=== PATIENT | male | born 1935 | race Caucasian/White ===

== ENCOUNTER 2016-12-14 22:48 | Emergency (ER) | payer OTHER, MEDICARE ==
[~2016-12-14] VITALS: Ht 182.9 cm; Wt 67.8 kg
[~2016-12-14 22:48] MED LIST: BP; CHOLESTEROL MED; CLONAZEPAM; COGENTIN; HYDR-4246 PO; IBUP-1724 PO
[2016-12-14 22:50] VITALS: Ht 182.9 cm; Wt 67.8 kg
[2016-12-14] MEDS ORDERED: THIO10CA2 (23:10)
[2016-12-14] MEDS ORDERED: TRIH2TAB3 PO (23:10)
[2016-12-14] MEDS ORDERED: CLON0.5T23 PO (23:10)
[2016-12-14] MEDS ORDERED: SIMV40TA5 PO (23:11)
--- NOTE | 2016-12-14 23:17 | NUR ---
PROVIDER STERLING ACEVEDO IN ROOM W/ PT.
--- NOTE | 2016-12-14 23:18 | ERPDOC ---
Departure Disposition Decision Date: Dec 15, 2016 Disposition Decision Time: 00:41 (LUIS M PATTEN APRN) Disposition: 01 DISCHARGED HOME, SELF-CARE Impression Impression (LUIS M PATTEN APRN) Impression: Primary Impression: Influenza B Severity: Moderate (LUIS M PATTEN APRN) Condition: Improved Seen By: Mid-level only (LUIS M PATTEN APRN) Referrals: DALTON SKELTON MD (Family) Patient Instructions: Influenza (ED) Problems/Meds/Labs Reviewed?: Yes Medications reviewed and manag: Yes (LUIS M PATTEN APRN) Additional Instructions: You have influenza B Rest Stay hydrated Take OTC tylenol for pain and fever. Follow treatment plan. Follow with your PCP if symptoms are not improving in the next week. Follow up care ordered?: Yes Mental Status: Alert (LUIS M PATTEN APRN) HPI - Cough/URI General Chief Complaint: Cough,Fever,Flu,URI Stated Complaint: FEVER/SORE THROAT Time Seen by Provider: 23:17 Source: patient, family (LUIS M PATTEN APRN) Time Seen by Provider: 23:17 (ANNIE PIMENTEL MD) HPI - Cough/URI Initial Comments 81 YO M brought to ED by family for evaluation of fever, cough, sore throat and rhinorrhea for past 4 days. Patient says that he has had trouble sleeping because he has been coughing so much. Grandson has influenza. Son who accompanies patient says that patient has reported that he feels like his heart has "fluttered" lately. Patient has hx. of COPD but is not on any inhalers. SpO2 on RA 92-94%. Patient denies any pain. Pain/Severity Scale: Now: 4/10 (sore throat) Associated Symptoms: cough, fever/chills, nasal drainage, shortness of breath, sore throat, DENIES: chest pain/soreness, dizziness, earache, facial pain, lightheadedness, muscle aches, sinus infection, wheezing (LUIS M PATTEN APRN) Allergies: Coded Allergies: Aspirin (Unverified Allergy, Unknown, 03/29/08) Past History Past Medical History Metabolic: hypercholesterolemia, hypertension Cardiac: DENIES: A-fib, CHF Respiratory: COPD GI: DENIES: ulcers Male: DENIES: renal insufficiency Neurological: DENIES: seizures Musculoskeletal: back pain, osteoarthritis Integumentary: DENIES: eczema Psychological: DENIES: depression (LUIS M PATTEN MATERIALS HANDLING COORDINATOR) Surgical History General: back (LUIS M PATTEN MATERIALS HANDLING COORDINATOR) Family History Family PMH: FOUND: other (noncontributory) (LUIS M PATTEN MATERIALS HANDLING COORDINATOR) Vaccines Hx Influenza Vaccination: Yes (07/09) (LUIS M PATTEN APRN) Social History Current Occupational Status: retired (LUIS M PATTEN APRN) Review of Systems Constitutional Constitutional: DENIES: chills, dizziness, fever, weakness (CARMEN PATTENS Sherri MATERIALS HANDLING COORDINATOR) Eyes General: DENIES: erythema, exudate Lids/Accessories: DENIES: erythema, swelling (LUIS M PATTEN MATERIALS HANDLING COORDINATOR) ENMT Ears: DENIES: pain Hearing: hearing loss Sinuses: congestion, rhinorrhea Mouth/Throat: sore throat (CARMEN PATTENS A MATERIALS HANDLING COORDINATOR) Cardiovascular Cardiac: DENIES: chest pain, murmur Rhythm/Rate: palpitations (LUIS M PATTEN A MATERIALS HANDLING COORDINATOR) Pulmonary Respiratory: cough, DENIES: dyspnea (CARMEN PATTENS A MATERIALS HANDLING COORDINATOR) GI Upper Abdomen: DENIES: nausea, pain, vomiting Lower Abdomen: DENIES: diarrhea, pain (CARMEN PATTENS A MATERIALS HANDLING COORDINATOR) General: DENIES: dysuria, pain (CARMEN PATTENS A MATERIALS HANDLING COORDINATOR) Musculoskeletal General: DENIES: joint pain, pain, tenderness (CARMEN PATTENS A MATERIALS HANDLING COORDINATOR) Integumentary Skin: DENIES: color change, itching, rash (CARMEN PATTENS A MATERIALS HANDLING COORDINATOR) Neurological General: DENIES: ataxia, change in strength, numbness, paralysis/paresis, weakness (CARMEN PATTENS A MATERIALS HANDLING COORDINATOR) Psychiatric Psychiatric: DENIES: anxiety, depression, nervousness (CARMEN PATTENS A MATERIALS HANDLING COORDINATOR) Physical Exam General General Nourishment: well nourished, well developed, no acute distress, adult (CARMEN PATTENS A MATERIALS HANDLING COORDINATOR) Vitals and Pain Weight: Kilograms: Height (feet): 6 Height (inches): 0.00 Triage Pain Scale: (CARMEN PATTENS A MATERIALS HANDLING COORDINATOR) Eyes (brief) Eyes Brief: found: EOMI, PERRL (LUIS M PATTEN MATERIALS HANDLING COORDINATOR) ENMT (brief) ENMT Brief: FOUND: TM clear, TM good light reflex, mucosa moist, pharnyx erythema, NOT FOUND: nasal exudate, nasal swelling (LUIS M PATTEN MATERIALS HANDLING COORDINATOR) Neck (brief) Neck: FOUND: trachea midline, NOT FOUND: adenopathy, tenderness, thyromegaly ( LUIS M PATTEN MATERIALS HANDLING COORDINATOR) Respiratory Inspection: NOT FOUND: tachypnea Auscultation: FOUND: decreased (throughout but clear) (LUIS M PATTEN MATERIALS HANDLING COORDINATOR) Cardiovascular (brief) Cardiac: FOUND: regular rate, regular rhythm (LUIS M PATTEN MATERIALS HANDLING COORDINATOR) Abdomen (brief) Abdominal Brief: FOUND: bowel normo active x4, soft, NOT FOUND: tender (LUIS M PATTEN MATERIALS HANDLING COORDINATOR) Musculoskeletal (brief) Musculoskeletal Brief: NOT FOUND: deformity, loss of motion (LUIS M PATTEN MATERIALS HANDLING COORDINATOR) Integumentary (brief) Integumentary Brief: FOUND: dry, pink, warm (LUIS M PATTEN MATERIALS HANDLING COORDINATOR) Neurologic (brief) Neurological Brief: FOUND: CN w/o gross def to obs, motor-no gross deficits, sensory-no gross deficits (LUIS M PATTEN MATERIALS HANDLING COORDINATOR) Psychiatric (brief) Psychiatric Brief: FOUND: alert, normal affect, oriented (LUIS M PATTEN MATERIALS HANDLING COORDINATOR ) Differential Diagnoses Differential Diagnoses Considering: Acute Bronchitis, COPD Exacerbation, Influenza, Pharyngitis, Pneumonia, Sinusitis, Strep, URI, Viral Syndrome (LUIS M PATTEN MATERIALS HANDLING COORDINATOR) Progress Results/Orders Orders Procedure Category Date Status Time Strep A Antigen Screen LAB 12/14/16 Complete 23:17 Influenza A/B Screen LAB 12/14/16 Complete 23:17 Albuterol/Ipratropium PHA 12/14/16 Complete (Duoneb) 23:30 Cbc W/Auto LAB 12/14/16 Complete Diff-Reflex Manual 23:25 Chest, Pa & Lateral RAD 12/14/16 Resulted 23:25 Troponin I W LAB 12/14/16 Complete Hemolysis Index 23:25 Probnp LAB 12/14/16 Complete EKG EKG 12/14/16 Taken Group A Strep Culture GAY 12/14/16 Complete 23:34 Cmp - Comprehensive LAB 12/14/16 Complete Metabolic Acetaminophen PHA 12/15/16 Complete (Tylenol Regular 00:00 (ANNIE PIMENTEL MD) Lab Results Laboratory Tests Test 12/14/16 23:22 12/14/16 23:36 Influenza Type A Antigen Negative Influenza Type B Antigen Positive Group A Streptococcus Screen Negative White Blood Count 7.2T/MM3 Red Blood Count 3.84M/MM3 Hemoglobin 11.9GM/DL Hematocrit 35.9% Mean Corpuscular Volume 93.5UM3 Mean Corpuscular Hemoglobin 31.0UUG Mean Corpuscular Hemoglobin Concent 33.1GM/DL RDW Standard Deviation 41.3FL Platelet Count 237T/MM3 Mean Platelet Volume 9.7UM3 Immature Granulocyte % (Auto) 0.1% Neutrophils (%) (Auto) 73.2% Lymphocytes (%) (Auto) 14.8% Monocytes (%) (Auto) 10.9% Eosinophils (%) (Auto) 0.6% Basophils (%) (Auto) 0.4% Absolute Immature Granulocyte (auto 0.01T/MM3 Absolute Neutrophils (auto) 5.2T/MM3 Absolute Lymphocytes (auto) 1.1T/MM3 Absolute Monocytes (auto) 0.8T/MM3 Absolute Eosinophils (auto) 0.0T/MM3 Absolute Basophils (auto) 0.0T/MM3 Turbidity 148 Sodium Level 141MEQ/L Potassium Level 4.0MEQ/L Chloride Level 105MEQ/L Carbon Dioxide Level 27MEQ/L Anion Gap 9MEQ/L Blood Urea Nitrogen 17.0MG/DL Creatinine 0.9MG/DL Glomerular Filtration Rate Calc 81 BUN/Creatinine Ratio 19RATIO Glucose Level 125MG/DL Calculated Osmolality 274MOSM/KG Calcium Level 8.9MG/DL Total Bilirubin 0.50MG/DL Icterus Index < 2 Aspartate Amino Transf (AST/SGOT) 32U/L Alanine Aminotransferase (ALT/SGPT) 30U/L Alkaline Phosphatase 48U/L Troponin I 0.013ng/ml EH-Fzb-B-Type Natriuretic Peptide 243PG/ML Total Protein 6.3G/DL Albumin 3.4G/DL Globulin 2.9G/DL Albumin/Globulin Ratio 1.2RATIO Chemistry Specimen Hemolysis < 15 (ANNIE PIMENTEL MD) Medications Current ED Medications Albuterol/ Ipratropium (Duoneb) 3 ml O ONCE AEROSOL Last administered on t 23:32; Start 12/14/16 at 23:30; Stop 12/14/16 at 23:31; Status DC Acetaminophen (Tylenol Regular Strength) 650 mg O ONCE PO Last administered on 12/15/16t 00:00; Start 12/15/16 at 00:00; Stop 12/15/16 at 00:01; Status DC (ANNIE PIMENTEL MD) Progress Progress WBC 7.2 with viral shift CMP unremarkable Influenza B positive CXR no acute cardiopulmonary findings Patient has continue to have SpO2 above 93%. Patient reports relieve of throat pain with 650mg of tylenol. I discussed labs/CXR with patient/family and answered questions. Patient and family verbalized understanding of treatment plan, close follow up with PCP and return precautions. (LUIS M PATTEN APRN) EKG EKG : Rate: 60-100 Rhythm: sinus Barco: normal QRS: normal Intervals: normal ST/T: normal Interpreted by: signing physician (Dr. Pimentel) (LUIS M PATTEN APRN) Xray Xray : Xray: CXR PA/Lat (no acute cardiopulmonary disease) Interpretation: Interpreted by Me (LUIS M PATTEN APRN) LUIS M PATTEN APRN Dec 14, 2016 23:18 ANNIE PIMENTEL MD Dec 20, 2016 18:30
--- NOTE | 2016-12-14 23:22 | NUR ---
INFLUENZA AND STREP A SWABS COLLECTED.
[2016-12-14] MEDS ORDERED: ALBUTEROL/IPRATROPIUM INHAL. 2.5mg-0.5mg/3ml Neb. AEROSOL ONE (23:30)
--- OUTSIDE RECORDS SUMMARY | 2016-12-14 23:33 | XMS REPORT | Continuity of Care Document ---
Author Author [facility] Organization [facility] Address Unknown Phone Unavailable Allergies Active Description Code Type Severity Reaction Onset Reported/Identified Relationship to Patient Clinical Status Yes aspirin NKMA N/A N/A 01/24/2014 Yes caffeine NKMA N/A N/A 01/24/2014 Yes aspirin aspirin Drug Allergy Mild BREATHING PROBLEMS 07/03/2015 Medications Problems Procedures Results Test Result Range HEMOGLOBIN - 07/10/15 08:18 MEAN CELL VOLUME 89.8 fl 80.0-100.0 HEMOGLOBIN 12.7 gm/dL 14.0-18.0 METABOLIC PANEL, BASIC - 07/10/15 08:18 POTASSIUM 4.2 mmol/L 3.5-5.3 EST GFR (MDRD) > 60 mL/min > 59 ANION GAP 8 mmol/L 5-15 EST CrCl (CG) > 60 mL/min > 59 GLUCOSE 114 mg/dL 70-99 CALCIUM 8.7 mg/dL 8.5-10.1 BLOOD UREA NITROGEN 9 mg/dL 7-20 CREATININE 0.8 mg/dL 0.7-1.3 SODIUM 135 mmol/L 135-148 CHLORIDE 101 mmol/L 98-110 CARBON DIOXIDE 26 mmol/L 21-32 Encounters ACCT No. Visit Date/Time Discharge Status Pt. Type Provider Facility Loc./Unit Complaint [id number] 10/19/2016 10:10:00 2016 23:59:00 DIS Outpatient Benson Villa [facility] [place] TCPA, Skin tag on back of right leg [id number] 06/17/2015 12:26:00 2014 23:59:00 DIS Outpatient Azeem Gaston [facility] [place] bad cold DOC [id number] 12/12/2014 10:08:00 2014 23:59:00 DIS Outpatient Benson Villa [facility] [place] handicap paperwork
--- OUTSIDE RECORDS SUMMARY | 2016-12-14 23:33 | XMS REPORT | Referral Summary ---
Author Author [facility] Organization [facility] Address Unknown Phone Unavailable Care Team Providers Care Machine Long Goods Helper Name Role Phone Christiano Villa Primary Care Physician [phone] Encounter VC Date(s): 06/17/15 - 06/17/15 [facility], [address] [place] [id number] Discharge Diagnosis: Viral upper respiratory tract infection Discharge Disposition: 01-Home or Self Care Attending Physician: Azeem Gaston DO Admitting Physician: Azeem Gaston DO Vital Signs Most recent to 1 oldest [Reference Range]: Temperature Tympanic 36.6 degC [36.6-38.1 degC] (06/17/15 12:41 PM) Peripheral Pulse 76 bpm Rate [60-100 bpm] (06/17/15 12:41 PM) Blood Pressure 105/45 mmHg [90-140/60-90 mmHg] (06/17/15 12:41 PM) SpO2 96 % (06/17/15 12:41 PM) Problem List Condition Effective Dates Status Health Status Informant Alcoholism(Confirmed Active ) Alzheimer's Active dementia(Confirmed) Anxiety(Confirmed) Active ASVD Active (arteriosclerotic vascular disease) of carotid systems(Confirmed) BPH (benign Active prostatic hypertrophy)(Confirm ed) COPD (chronic Active obstructive pulmonary disease)(Confirmed) Depression(Confirmed Active ) Dyslipidemia(Confirm Active ed) Essential Active tremors(Confirmed) Hyperlipidemia(Confi Active rmed) Hypertension(Confirm Active ed) Neuropathy(Confirmed Active ) Osteoarthritis(Confi Active rmed) Tobacco Active patient user(Confirmed) Allergies, Adverse Reactions, Alerts Substance Reaction Severity Status aspirin Active caffeine Active Medications Aricept 10 mg oral tablet 1 tabs, Oral, Bedtime (once a day), VA, # 30 tabs, 3 Refill(s), Pharmacy: [facility] #[id number], 1 tabs Oral Bedtime (once a day),Instr:VA Start Date: 01/14/15 Status: Ordered benztropine 2 mg oral tablet tabs, Oral, BID, 0 Refill(s) Start Date: 12/11/14 Status: Ordered bethanechol 25 mg oral tablet tabs, Oral, TID, 0 Refill(s) Start Date: 12/11/14 Status: Ordered clobetasol 0.05% topical cream ashu, Topical, BID, 0 Refill(s) Start Date: 12/11/14 Status: Ordered clonazePAM 1 mg oral tablet 1 tabs, Oral, TID, 0 Refill(s) Start Date: 12/11/14 Status: Ordered lisinopril 10 mg oral tablet tabs, Oral, Daily, 0 Refill(s) Start Date: 12/11/14 Status: Ordered lisinopril 20 mg oral tablet tabs, Oral, Daily, 0 Refill(s) Start Date: 12/11/14 Status: Ordered meloxicam 15 mg oral tablet tabs, Oral, Daily, 0 Refill(s) Start Date: 12/11/14 Status: Ordered omeprazole 20 mg oral delayed release capsule caps, Oral, Daily, 0 Refill(s) Start Date: 12/11/14 Status: Ordered simvastatin 40 mg oral tablet tabs, Oral, Bedtime (once a day), 0 Refill(s) Start Date: 12/11/14 Status: Ordered thiothixene 10 mg oral capsule caps, Oral, BID, 0 Refill(s) Start Date: 12/11/14 Status: Ordered Results No data available for this section Immunizations No data available for this section Procedures No data available for this section Social History Social History Type Response Smoking Status Light tobacco smoker1 1Smoking only occasionally instead of daily Assessment and Plan Extracted from: Title: Office Visit Note Author: Azeem Gaston DO Date: 06/17/15 Assessment/Plan Viral upper respiratory tract infection 1. At most he has a viral upper respiratory tract infection. 2. Continue with supportive care. 3. Follow-up if worsening presentation, or no improvement in the next couple of days. Ordered: Office Visit Level 3 Est [id number]
--- OUTSIDE RECORDS SUMMARY | 2016-12-14 23:33 | XMS REPORT | Referral Summary ---
Author Author [facility] Organization [facility] Address Unknown Phone Unavailable Care Team Providers Care Slumber Room Attendant Name Role Phone Christiano Villa Primary Care Physician [phone] Encounter VC Date(s): 10/19/16 - 10/19/16 [facility], [address] [place] [id number]- Discharge Disposition: 01-Home or Self Care Attending Physician: Benson Villa MD Admitting Physician: Benson Villa MD Vital Signs Most recent to 1 oldest [Reference Range]: Peripheral Pulse 72 bpm Rate [60-100 bpm] (10/19/16 10:30 AM) Blood Pressure 102/70 mmHg [90-140/60-90 mmHg] (10/19/16 10:30 AM) SpO2 94 % (10/19/16 10:30 AM) Problem List Condition Effective Dates Status Health [...] VA, # 30 tabs, 3 Refill(s), Pharmacy: [facility] #[id number], 1 tabs Oral Bedtime (once a day),Instr:VA Start Date: 01/14/15 Status: Ordered benztropine 2 mg oral tablet tabs, Oral, BID, 0 Refill(s) Start Date: 12/11/14 Status: Ordered cefadroxil 500 mg oral capsule 500 mg 1 caps, Oral, q12hr, X 10 days, # 20 caps, 0 Refill(s), Pharmacy: [facility] #[id number], 1 caps Oral q12hr,x10 days Start Date: 10/19/16 Stop Date: 10/29/16 Status: Ordered clonazePAM 1 mg oral tablet 0.5 mg 0.5 tabs, Oral, BID, 0 Refill(s) Start Date: 12/11/14 Status: Ordered meloxicam 15 mg oral tablet tabs, Oral, Daily, 0 Refill(s) Start Date: 12/11/14 Status: Ordered simvastatin 40 mg oral tablet 20 mg 0.5 tabs, Oral, Bedtime (once a day), 0 Refill(s) Start Date: 12/11/14 Status: Ordered thiothixene 10 mg oral capsule caps, Oral, BID, 0 Refill(s) Start Date: 12/11/14 Status: Ordered Results No data available for this section Immunizations No data available for this section Procedures No data available for this section Social History Social History Type Response Smoking Status Former smoker Assessment and Plan No data available for this section
--- NOTE | 2016-12-14 23:36 | NUR ---
LAB LAB IN ROOM FOR BASIC LABS W/O IV.
[2016-12-14 23:44] LABS: BASOPHILS % (AUTO) 0.4 % (0-2); EOSINOPHILS % (AUTO) 0.6 % (0-4); HCT - HEMATOCRIT 35.9 % (41-53); HGB - HEMOGLOBIN 11.9 GM/DL (13.5-17.5); IMMATURE GRANULOCYTE # (AUTO) 0.01 T/MM3 (0.00-0.03); IMMATURE GRANULOCYTE % (AUTO) 0.1 % (0.0-0.5); LYMPHOCYTES # (AUTO) 1.1 T/MM3 (1-4.8); LYMPHOCYTES % (AUTO) 14.8 % (23-45); MEAN CORPUSCULAR HGB CONC(MCHC 33.1 GM/DL (31-37); MEAN CORPUSCULAR VOLUME 93.5 UM3 (80-100); MEAN PLATELET VOLUME 9.7 UM3 (9.4-12.4); MONOCYTES # (AUTO) 0.8 T/MM3 (0-0.8); MONOCYTES % (AUTO) 10.9 % (0-9.0); NEUTROPHILS #(AUTO)-ABSOLUTE 5.2 T/MM3 (1.8-7.7); NEUTROPHILS % (AUTO) 73.2 % (33-66); RED BLOOD COUNT 3.84 M/MM3 (4.50-5.90); WBC - WHITE BLOOD COUNT 7.2 T/MM3 (4.5-11.0)
[2016-12-14 23:50] LABS: INFLUENZA A AG SCREEN NEGATIVE (NEGATIVE); INFLUENZA B AG SCREEN POSITIVE (NEGATIVE)
[2016-12-15] MEDS ORDERED: ACETAMINOPHEN 325 MG TABLET PO ONE
--- NOTE | 2016-12-15 | NUR ---
PO MED 650 MG TYLENOL GIVEN CHARTED W/ PT TOLERANCE.
--- NOTE | 2016-12-15 00:05 | NUR ---
XRAY PT GONE TO XRAY VIA CART.
[2016-12-15 00:17] LABS: ALBUMIN 3.4 G/DL (3.5-5.0); ALBUMIN/GLOBULIN RATIO 1.2 RATIO (1.1-2.2); ALKALINE PHOSPHATASE 48 U/L (38-126); ALT (SGPT) 30 U/L (21-72); ANION GAP 9 MEQ/L (5-15); AST (SGOT) 32 U/L (17-59); BUN/CREATININE RATIO 19 RATIO (6-26); CALCIUM 8.9 MG/DL (8.4-10.2); CHLORIDE 105 MEQ/L (98-107); CO2 - CARBON DIOXIDE 27 MEQ/L (22-30); CREATININE 0.9 MG/DL (0.8-1.5); GLOMERULAR FILTRATION RATE 81; GLUCOSE 125 MG/DL (75-110); SODIUM 141 MEQ/L (134-144); TOTAL PROTEIN 6.3 G/DL (6.3-8.2)
--- NOTE | 2016-12-15 00:20 | NUR ---
XRAY PT BACK FROM XRAY VIA CART.
[2016-12-15 00:50] VITALS: BP 110/76; PULSE 84; RESP 24; TEMP 98.9; O2SAT 96
--- NOTE | 2016-12-15 00:50 | NUR ---
DISCHARGE PT GIVEN INSTRUCTIONS FOR SLEF CARE OF GISEL Epstein, PT VERBALIZED UNDERSTANDING AND SIGNED FORM, PT LEFT ER AMBULATORY W/ CANE , ALERT, VS CHARTED AND NO ACUTE DISTRESS.
--- NOTE | 2016-12-15 07:55 | DI ---
INDICATION: ITS.REASON: cough, fever PROCEDURE: CHEST 2-VIEWS UPRIGHT (PA \T\ LAT) Encounter: Initial COMPARISON: July 17, 2014 FINDINGS: Emphysema again noted. Chronic area of scarring in the right upper lobe. No pneumonia. There is no pleural effusion or pneumothorax. The heart size, mediastinal contours and pulmonary vascularity are within normal limits. IMPRESSION: No acute cardiopulmonary disease. .
== END 2016-12-15 00:50 | disposition home or self-care (01) ==
LOC: ED 22:48
DX: J10.1 Influenza due to other identified influenza virus with other respiratory manifestations (principal); J44.9 Chronic obstructive pulmonary disease, unspecified
CPT/HCPCS: 36415; 80053; 83880; 84484; 85025; 87081; 87400; 87430; 93005; 94640

== ENCOUNTER 2017-01-07 06:10 | Emergency (ER) | payer MEDICARE, OTHER ==
[~2017-01-07] VITALS: Ht 182.9 cm; Wt 64.5 kg
[~2017-01-07 06:10] MED LIST changes: -BP; -CHOLESTEROL MED; +CLON0.5T23 PO; -CLONAZEPAM; -COGENTIN; -HYDR-4246 PO; +SIMV40TA5 PO; +THIO10CA2; +TRIH2TAB3 PO
[2017-01-07 06:12] VITALS: Ht 182.9 cm; Wt 64.5 kg
--- OUTSIDE RECORDS SUMMARY | 2017-01-07 06:14 | XMS REPORT | Continuity of Care Document ---
Author Author [facility] Organization [facility] Address Unknown Phone Unavailable Allergies Active Description [...] Status Pt. Type Provider Facility Loc./Unit Complaint [id number] 10/19/2016 10:10:00 2016 23:59:00 DIS Outpatient Benson Villa [facility] [place] TCPA, Skin tag on back of right leg [id number] 06/17/2015 12:26:00 2014 23:59:00 DIS Outpatient Azeem Gaston [facility] [place] bad cold DOC [id number] 12/12/2014 10:08:00 2014 23:59:00 DIS Outpatient Benson Villa [facility] [place] handicap paperwork
--- OUTSIDE RECORDS SUMMARY | 2017-01-07 06:14 | XMS REPORT | Referral Summary ---
Author Organization Unknown Address Unknown Phone Unavailable Care Team Providers Care Adjunct Instructor Of Women'S Studies Name Role Phone Christiano Villa Primary Care Physician [phone] Encounter VC Date(s): 12/12/14 - 12/12/14 [facility] [place], Family [address] [place] [address] Discharge Diagnosis: Anxiety Discharge Diagnosis: Osteoarthritis Discharge Diagnosis: Neuropathy Discharge Diagnosis: COPD (chronic obstructive pulmonary disease) Discharge Diagnosis: Depression Discharge Disposition: Home or Self Care Attending Physician: Benson Villa MD Admitting Physician: Benson Villa MD Vital Signs Most recent to 1 oldest [Reference Range]: Blood Pressure 112/58 mmHg [90-140/60-90 mmHg] (12/12/14 10:29 AM) Problem List Condition Effective Dates Status Health Status Informant Alcoholism(Confirmed Active ) Anxiety(Confirmed) Active ASVD Active (arteriosclerotic vascular disease) [...] a day), [facility], # 30 tabs, 3 Refill(s) Special Instructions: [facility] Start Date: 12/12/14 Status: Ordered benztropine 2 mg oral tablet [...] occasionally instead of daily Assessment and Plan No data available for this section
--- NOTE | 2017-01-07 06:36 | NUR ---
PROVIDER DR. WILDER IN ROOM WITH PT.
[2017-01-07] MEDS ORDERED: ALBUTEROL/IPRATROPIUM INHAL. 2.5mg-0.5mg/3ml Neb. AEROSOL ONE ×2 (06:45→09:30)
[2017-01-07 07:01] VITALS: O2SAT 90
--- NOTE | 2017-01-07 07:13 | ERPDOC ---
Departure Disposition Decision Date: Jan 07, 2017 Disposition Decision Time: 08:00 Disposition: 44 TO [facility] Impression Impression Impression: Primary Impression: COPD exacerbation Severity: Moderate Condition: Improved Seen By: Physician only Referrals: DALTON SKELTON MD (Family) Problems/Meds/Labs Reviewed?: Yes Medications reviewed and manag: Yes Follow up care ordered?: Yes Mental Status: Alert, Oriented HPI - General Medical General Chief Complaint: Dyspnea/Respdistress Stated Complaint: SOA, COUGH Time Seen by Provider: 06:31 Source: patient, family Exam Limitations: no limitations HPI - General Medical Initial Comments 81-year-old male presents to the emergency department with a chief complaint of cough and shortness of breath. Patient's cough is productive of a white mucus. Patient states that he has been feeling short of breath since he was diagnosed with influenza B on 12/14/2016. Patient does note chronic shortness of breath however secondary to COPD. He does not use home O2. Patient denies any pain or discomfort. Patient notes that his symptoms felt better with a short course of steroids and antibiotic coverage which was completed 4-5 days ago. Patient denies any other complaints or associated symptoms. Patient was at home when his symptoms began. Symptoms have had a gradual progression in nature since onset. Occurred At: home Onset: Gradual Allergies: Coded Allergies: aspirin (Unverified Allergy, Unknown, 01/07/17) Past History Past Medical History Metabolic: hypercholesterolemia, hypertension Respiratory: COPD Musculoskeletal: back pain, osteoarthritis Surgical History General: back Family History Family History: Negative Family PMH: FOUND: other Vaccines Hx Influenza Vaccination: Yes (07/09) Social History Smoking Status: Former smoker Substance Use Type: does not use Alcohol Intake: none Current Occupational Status: retired Review of Systems Constitutional Constitutional: DENIES: chills, fever Eyes General: DENIES: erythema, exudate Lids/Accessories: DENIES: erythema, swelling Vision: DENIES: acuity, blurring ENMT Ears: DENIES: drainage, erythema Hearing: DENIES: hearing loss Balance: DENIES: ataxia, falling to one side Sinuses: DENIES: congestion, pain Nose: DENIES: nosebleeds, pain Mouth/Throat: DENIES: painful swallowing, sore throat Teeth: DENIES: pain Jaw: DENIES: pain Cardiovascular Cardiac: DENIES: chest pain, dyspnea on exertion Rhythm/Rate: DENIES: irregular beat, palpitations Vascular: DENIES: pedal edema, unilateral swelling Pulmonary Respiratory: cough, dyspnea, sputum, DENIES: pleuritic chest pain GI Upper Abdomen: DENIES: nausea, pain, vomiting Lower Abdomen: DENIES: diarrhea, pain General: DENIES: dysuria, frequency Musculoskeletal General: DENIES: joint pain, tenderness Integumentary Skin: DENIES: itching, rash Neurological General: DENIES: headache, numbness, weakness Psychiatric Psychiatric: DENIES: emotional instability, suicidal ideation/attempt Endocrine Endocrine: DENIES: polydipsia, polyphagia Hematologic/Lymphatic Hematologic/Lymphatic: DENIES: frequent nosebleeds, lymphadenopathy Allergic/Immunological Allergic/Immunoligical: DENIES: allergic reactions, hives Physical Exam General General Nourishment: well nourished, well developed, appears stated age, no acute distress, adult General Body Habitus: well groomed Vitals and Pain First Documented Vital Signs Date Time Temp Pulse Resp B/P Pulse Ox O2 Delivery O2 Flow Rate FiO2 01/07/17 06:12 97.8 95 40 134/64 94 Room Air Weight: Kilograms: 64.500 Height (feet): 6 Height (inches): 0 Triage Pain Scale: RN VS reviewed by Provider: Yes Normal Exams: Head: Normocephalic w/o trauma Eyes: Pupils are PERRLA w/ EOMI, No scleral icterus, irritation, or foreign bodies noted ENMT: No facial trauma, nasal exudates, pharyngeal erythema, or exudates are noted Dental: No fractured, loose, or missing teeth noted Neck: Full range of motion, without adenopathy, JVD, bruits or thyromegaly Chest/Resp: with good airflow, and symmetry bilaterally CV: Regular rate and rhythm, without murmur or gallop, Pulses 2+ all extremities, capillary refill, <2 seconds all ext., no pedal edema noted Abdomen: Bowel sounds positive, soft, non-tender, non-distended, no hepatosplenomegaly, masses or bruits noted Lymphatic: No lymphadenopathy, or lymphedema noted Musculoskeletal: No tenderness, or deformity noted, good range of motion, all extremities Integumentary: No rashes, hives, or bruising noted, hair and nails, without abnormality Neurologic: Patient is alert, and oriented, cranial nerves, motor/sensory/ cerebellar, exams w/o gross deficits, to observation Psychiatric: Patient exhibits, appropriate attention, emotion and affect Respiratory (brief) Comments Scattered End Expiratory Wheezes Bilaterally. Differential Diagnoses Considering: Other (COPD/URI/Pneumonia/acute bronchitis) Progress Results/Orders Orders Procedure Category Date Status Time Cbc W/Auto LAB 01/07/17 Complete Diff-Reflex Manual Cmp - Comprehensive LAB 01/07/17 Complete Metabolic Troponin I W LAB 01/07/17 Complete Hemolysis Index EKG EKG 01/07/17 Taken Chest, Pa & Lateral RAD 01/07/17 Resulted 06:31 Probnp LAB 01/07/17 Complete 06:31 Albuterol/Ipratropium PHA 01/07/17 Complete (Duoneb) 06:45 Iv Lock (Ed Only) EDM 01/07/17 Transmitted 06:58 Normal Saline (Ns) PHA 01/07/17 Complete 08:00 Methylprednisolone PHA 01/07/17 Complete Sod Succ (Solu-Medrol 08:15 Doxycycline PHA 01/07/17 Complete (Vibramycin) 21:00 Albuterol/Ipratropium PHA 01/07/17 Complete (Duoneb) 09:30 Doxycycline PHA 01/07/17 Complete (Vibramycin) 09:45 UA, LAB 01/07/17 In Process Dip&Micro(Complete) & 09:47 Lab Results Laboratory Tests Test 01/07/17 07:05 01/07/17 09:47 White Blood Count 9.3T/MM3 Red Blood Count 4.37M/MM3 Hemoglobin 13.1GM/DL Hematocrit 41.6% Mean Corpuscular Volume 95.2UM3 Mean Corpuscular Hemoglobin 30.0UUG Mean Corpuscular Hemoglobin Concent 31.5GM/DL RDW Standard Deviation 43.4FL Platelet Count 313T/MM3 Mean Platelet Volume 9.9UM3 Immature Granulocyte % (Auto) 0.1% Neutrophils (%) (Auto) 69.9% Lymphocytes (%) (Auto) 15.4% Monocytes (%) (Auto) 8.5% Eosinophils (%) (Auto) 5.2% Basophils (%) (Auto) 0.9% Absolute Immature Granulocyte (auto 0.01T/MM3 Absolute Neutrophils (auto) 6.5T/MM3 Absolute Lymphocytes (auto) 1.4T/MM3 Absolute Monocytes (auto) 0.8T/MM3 Absolute Eosinophils (auto) 0.5T/MM3 Absolute Basophils (auto) 0.1T/MM3 Turbidity < 20 Sodium Level 146MEQ/L Potassium Level 4.3MEQ/L Chloride Level 108MEQ/L Carbon Dioxide Level 25MEQ/L Anion Gap 13MEQ/L Blood Urea Nitrogen 23.0MG/DL Creatinine 0.8MG/DL Glomerular Filtration Rate Calc 93 BUN/Creatinine Ratio 29RATIO Glucose Level 123MG/DL Calculated Osmolality 286MOSM/KG Calcium Level 9.3MG/DL Total Bilirubin 0.80MG/DL Icterus Index < 2 Aspartate Amino Transf (AST/SGOT) 31U/L Alanine Aminotransferase (ALT/SGPT) 40U/L Alkaline Phosphatase 48U/L Troponin I < 0.012ng/ml MS-Arj-Z-Type Natriuretic Peptide 65PG/ML Total Protein 7.2G/DL Albumin 4.0G/DL Globulin 3.2G/DL Albumin/Globulin Ratio 1.3RATIO Chemistry Specimen Hemolysis 55 Urine Collection Type Cleancatch-midstream Urine Color Yellow Urine Turbidity Cloudy Urine pH 6.0 Urine Specific [place] 1.025 Urine Protein Trace Urine Glucose (UA) Negative Urine Ketones Negative Urine Blood 1+ Urine Nitrite Positive Urine Bilirubin Negative Urine Urobilinogen 0.2EU/DL Urine Leukocyte Esterase 3+ Urine RBC Pending Urine WBC Pending Urine Bacteria Pending Medications Current ED Medications Albuterol/ Ipratropium 3 ml 3 ml O ONCE AEROSOL Last administered on 07:08; Start 01/07/17 at 06:45; Stop 01/07/17 at 06:46; Status DC Sodium Chloride (NS) 500 ml @ 999 mls/hr Q31M ONCE IV Last administered on 08:21; Start 01/07/17 at 08:00; Stop 01/07/17 at 08:30; Status DC Methylprednisolone Sodium Succinate 125 mg 125 mg O ONCE IV Last administered on 01/07/17 08:21; Start 01/07/17 at 08:15; Stop 01/07/17 at 08:16; Status DC Doxycycline Hyclate/Sodium Chloride (Vibramycin/NS) 250 ml @ 250 mls/hr Q12HR IV Last administered on 01/07/17 09:26; Start 01/07/17 at 21:00; Stop at 21:00; Status DC Albuterol/ Ipratropium (Duoneb) 3 ml O ONCE AEROSOL ; Start 01/07/17 at 09:30; Stop 01/07/17 at 09:49; Status DC Doxycycline Hyclate (Vibramycin) 100 mg O ONCE PO Last administered on t 09:37; Start 01/07/17 at 09:45; Stop 01/07/17 at 09:46; Status DC Progress Progress Patient is given aerosol DuoNeb treatment upon arrival in the emergency department. This improved the patient's wheezing. Patient is given solu- medrol 125 mg IV times one. Patient is given doxycycline 100 mg by mouth 1 in the emergency Department. Patient is uncomfortable with returning home at this time. Long discussion was had with the patient and family regarding risk versus benefit of treatment. [facility] [place] [facility] [place] for [facility] as he is not comfortable returning home at this time. [facility] primary care physician is Dr. De León from the [place] and patient would like to continue treatment with his PCP at the [place] as they have been treating him as an outpatient for a COPD exacerbation. Patient has failed outpatient treatment. Patient requests transfer to the [place] for further evaluation and treatment. Patient and his son declined transfer by ambulance requesting to go by private car. Risk versus benefit of this is discussed in detail with them and they verbalized agreement and understanding. Patient is stable for transfer at this time. Patient declines 2nd DuoNeb treatment in the emergency department. Patient is accepted by Dr. Hook from the [place] after requested transfer is approved. Patient is transferred to the [place] via private car for further evaluation and treatment at his request. EKG EKG : Rate: 60-100 Rhythm: sinus [place]: normal QRS: normal Intervals: normal ST/T: normal Interpreted by: signing physician Xray Xray : Xray: CXR Portable Interpretation: Normal, Reviewed Written Report CALVIN WILDER DO Jan 07, 2017 07:13
--- OUTSIDE RECORDS SUMMARY | 2017-01-07 07:13 | XMS REPORT | Continuity of Care Document ---
Author Author [facility] Organization [facility] Address Unknown Phone Unavailable Allergies Active Description [...] Status Pt. Type Provider Facility Loc./Unit Complaint [id number] 10/19/2016 10:10:00 2016 23:59:00 DIS Outpatient Benson Villa [facility] [place] TCPA, Skin tag on back of right leg [id number] 06/17/2015 12:26:00 2014 23:59:00 DIS Outpatient Azeem Gaston [facility] [place] bad cold DOC [id number] 12/12/2014 10:08:00 2014 23:59:00 DIS Outpatient Benson Villa [facility] [place] handicap paperwork
[2017-01-07 07:15] LABS: BASOPHILS # (AUTO) 0.1 T/MM3 (0-0.2); BASOPHILS % (AUTO) 0.9 % (0-2); EOSINOPHILS # (AUTO) 0.5 T/MM3 (0-0.5); EOSINOPHILS % (AUTO) 5.2 % (0-4); HCT - HEMATOCRIT 41.6 % (41-53); HGB - HEMOGLOBIN 13.1 GM/DL (13.5-17.5); IMMATURE GRANULOCYTE # (AUTO) 0.01 T/MM3 (0.00-0.03); IMMATURE GRANULOCYTE % (AUTO) 0.1 % (0.0-0.5); LYMPHOCYTES # (AUTO) 1.4 T/MM3 (1-4.8); LYMPHOCYTES % (AUTO) 15.4 % (23-45); MEAN CORPUSCULAR HGB CONC(MCHC 31.5 GM/DL (31-37); MEAN CORPUSCULAR VOLUME 95.2 UM3 (80-100); MEAN PLATELET VOLUME 9.9 UM3 (9.4-12.4); MONOCYTES # (AUTO) 0.8 T/MM3 (0-0.8); MONOCYTES % (AUTO) 8.5 % (0-9.0); NEUTROPHILS #(AUTO)-ABSOLUTE 6.5 T/MM3 (1.8-7.7); NEUTROPHILS % (AUTO) 69.9 % (33-66); RED BLOOD COUNT 4.37 M/MM3 (4.50-5.90); WBC - WHITE BLOOD COUNT 9.3 T/MM3 (4.5-11.0)
[2017-01-07] MEDS ORDERED: ALBU0.63 AEROSOL (07:36)
[2017-01-07] MEDS ORDERED: ESCI5TAB PO (07:36)
[2017-01-07 07:37] LABS: ALBUMIN/GLOBULIN RATIO 1.3 RATIO (1.1-2.2); ALKALINE PHOSPHATASE 48 U/L (38-126); ALT (SGPT) 40 U/L (21-72); ANION GAP 13 MEQ/L (5-15); AST (SGOT) 31 U/L (17-59); BUN/CREATININE RATIO 29 RATIO (6-26); CALCIUM 9.3 MG/DL (8.4-10.2); CHLORIDE 108 MEQ/L (98-107); CO2 - CARBON DIOXIDE 25 MEQ/L (22-30); CREATININE 0.8 MG/DL (0.8-1.5); GLOMERULAR FILTRATION RATE 93; GLUCOSE 123 MG/DL (75-110); POTASSIUM 4.3 MEQ/L (3.6-5); SODIUM 146 MEQ/L (134-144); TOTAL PROTEIN 7.2 G/DL (6.3-8.2)
--- NOTE | 2017-01-07 07:37 | NUR ---
DR WILDER IN
--- NOTE | 2017-01-07 07:41 | NUR ---
TO [facility] PER CART
--- NOTE | 2017-01-07 07:59 | NUR ---
RETURNED FROM [facility]
[2017-01-07] MEDS ORDERED: NORMAL SALINE 500 ML IV ONE (08:00)
--- NOTE | 2017-01-07 08:04 | DI ---
INDICATION: ITS.REASON: cough PROCEDURE: CHEST 2-VIEWS UPRIGHT (PA \T\ LAT) Encounter: Initial COMPARISON: December 15, 2016 FINDINGS: The lungs are clear without evidence of focal abnormal airspace opacity. There is no pleural effusion or pneumothorax. Hyperinflation. The heart size, mediastinal contours and pulmonary vascularity are within normal limits. IMPRESSION: No acute cardiopulmonary disease. .
[2017-01-07] MEDS ORDERED: DOXYCYCLINE 100 MG TABLET PO ONE (09:45)
[2017-01-07 09:53] LABS: BLOOD, URINE 1+ (NEGATIVE); COLOR,URINE YELLOW (YELLOW); LEUKOCYTE ESTERASE ,URINE 3+ (NEGATIVE); NITRITE,URINE POSITIVE (NEGATIVE); UROBILINOGEN,URINE 0.2 EU/DL (NORMAL)
--- NOTE | 2017-01-07 09:55 | NUR ---
CONSENT FOR TRANSFER SIGNED. REFUSAL TO USE AMBULANCE FORM SIGNED BY PT. IV SITE FLUSHED & COBAN FOR TRANSFER.
[2017-01-07 10:01] LABS: WBC,URINE TNTC /HPF (0-5)
--- NOTE | 2017-01-07 10:02 | NUR ---
REPORT COMPLETED TO MARIANA AT [facility] IN [place]
[2017-01-07 10:04] LABS: BACTERIA,URINE 3+ (NEGATIVE); SQUAMOUS EPITHELIAL CELL,UR NONE SEEN
[2017-01-07 10:05] VITALS: BP 146/65; PULSE 98; RESP 32; TEMP 98.1; O2SAT 93
--- NOTE | 2017-01-07 10:05 | NUR ---
DISMISSED PER WC TO CARE OF SON. S[facility] DR[facility].
[2017-01-07] MEDS ORDERED: DOXYCYCLINE 100 MG in NORMAL SALINE 250 ML IV SCH (21:00)
--- NOTE | 2017-01-09 21:30 | NUR ---
CULTURE RESULTS [facility], [facility] AND [facility] REPORT IS FAXED.
== END 2017-01-07 10:05 ==
LOC: ED 06:10
DX: J44.1 Chronic obstructive pulmonary disease with (acute) exacerbation (principal); Z87.891 Personal history of nicotine dependence; Z79.899 Other long term (current) drug therapy
CPT/HCPCS: 71020; 80053; 81001; 83880; 84484; 85025; 87086; 93005; 94640; 96361; 96374; 96375; 99285; A9270; J2930; J7050